=== PATIENT | female | born 1935 | race Caucasian/White ===

== ENCOUNTER 2017-03-20 12:39 | Outpatient (RCR) | payer MEDICARE, SELFPAY ==
--- NOTE | 2017-03-20 14:00 | WC ---
PT REFERRED BY DR ATKINSON. NO WOUND TO TOP OF RT FOOT AT THIS TIME. ONLY DRY SKIN. PT STATES SHE HAD AN OPEN CRACK BEHIND HER 2ND TOE ON RT FOOT. NO OPEN AREA/FISSURE NOTED AT THIS TIME. FREE EVAL COMPLETED. RECOMMENDED PT LOTION DRY SKIN DAILY, ELEVATE LEGS IF SWELLING, CON'T W/ CURRENT ATB REGIME PER PCP FOR RECENT CELLULITIS TO FOOT, AND F/U W/ PCP OR RESCHED W/ WOUND CENTER IF OPEN AREA DEVELOPS AGAIN. UNDERSTANDING VOICED PER PT AND HER FRIEND WHO ACCOMPANIED.
== END 2017-03-22 23:59 ==
LOC: WC 12:39
PROVIDERS: Visit Provider Surgery
DX: Z09 Encounter for follow-up examination after completed treatment for conditions other than malignant neoplasm (principal)

== ENCOUNTER → 2017-05-12 15:48 | Outpatient (CLI) | payer MEDICARE, OTHER, SELFPAY ==
[2017-05-12 15:52] LABS: Mucous, Urine 0 SEEN /hpf (<or=2+); Red Blood Cells-Urine 0 SEEN /hpf (0-5)
[2017-05-12 17:10] LABS: Color, Urine Yellow (Yellow); Glucose, Dipstick Normal (Normal); Ketone-Dipstick Negative (Negative); Leukocyte Esterase-Dipstick 100 /ul (Negative); Nitrite-Dipstick Negative (Negative); Occult Blood-Urine Negative /ul (Negative); Protein-Dipstick Negative (Negative); Specific Gravity, Urine 1.015 (1.002-1.030); Urine Bilirubin Dipstick Negative (Negative); Urine Clarity Sl. Cloudy (Clear); Urine Urobilinogen Normal (Normal)
[2017-05-12 17:19] LABS: Squamous Epithelial Cells - UA 0-5 SEEN /hpf (5-10)
[2017-05-12 17:20] LABS: Hyaline Cast 0-5 SEEN /lpf (0-5)
[2017-05-12 17:21] LABS: Bacteria 4+ /hpf (None Seen)
[2017-05-12 17:23] LABS: White Blood Cells 5-10 SEEN /hpf (0-5)
== END ==
PROVIDERS: Family Medicine; Visit Provider Nurse Practitioner Family
DX: R30.0 Dysuria (principal); R39.9 Unspecified symptoms and signs involving the genitourinary system
CPT/HCPCS: 81001; 87077; 87086; 87088; 87186